=== PATIENT | female | born 2000 | race Caucasian/White ===

== ENCOUNTER 2018-12-18 08:17 | Emergency (ER) | payer OTHER ==
[~2018-12-18] VITALS: Ht 170.2 cm; Wt 79.5 kg
[2018-12-18] MEDS ORDERED: LIDOcaine 5% patch TP STA (08:32)
[2018-12-18] MEDS ORDERED: cyclobenzaprine 10mg tablet PO ONE (08:35)
[2018-12-18] MEDS ORDERED: CYCL-1 PO (08:47)
[2018-12-18 09:38] VITALS: BP 117/74
== END 2018-12-18 09:40 | disposition home or self-care (01) ==
LOC: ER 08:18
DX: S13.4XXA Sprain of ligaments of cervical spine, initial encounter (principal); Z91.040 Latex allergy status; Z88.5 Allergy status to narcotic agent; Z91.018 Allergy to other foods; Z79.899 Other long term (current) drug therapy; V89.2XXA Person injured in unspecified motor-vehicle accident, traffic, initial encounter; Y93.89 Activity, other specified; Y92.488 Other paved roadways as the place of occurrence of the external cause; Y99.8 Other external cause status
CPT/HCPCS: 99283